=== PATIENT | male | born 1950 | race Caucasian/White ===

== ENCOUNTER 2017-08-15 13:48 | Outpatient (CLI) | payer MEDICARE, BC, OTHER ==
[~2017-08-15] VITALS: Ht 175.3 cm; Wt 105.7 kg
[~2017-08-15 13:48] MED LIST: ASPI81TA85 PO; INSULANT SC; METF10004 PO; SIMV40TA2 PO; TELM1TAB12 PO; VICT18IN SC; VITA-122 PO; VITA100072 PO
[2017-08-15] MEDS ORDERED: NS 1,000 ML IV SCH (14:00)
[2017-08-15] MEDS ORDERED: PROPOFOL 200 MG/20 ML VIAL As Ordered ONE ×2 (14:39→14:40)
[2017-08-15] MEDS ORDERED: LIDOCAINE 2% INJ 100 MG/5 ML SDV (FOR ANES.) As Ordered ONE ×2 (14:39→14:40)
--- NOTE | 2017-08-15 15:03 | ROOR ---
Patient Name: Margarito Pulliam Procedure Date: 08/15/2017 2:30 PM Date of : 1950 Age: 66 Room: [facility] Gender: Male Note Status: Finalized Procedure: Total Colonoscopy to Cecum + Cold Snare Polypectomy + Hemoclips Indications: High risk colon cancer surveillance: Personal history of colonic polyps, Last colonoscopy: 2013 Providers: Tucker Cao MD Referring MD: Stan Mojica MD Requesting Provider: Medicines: Monitored Anesthesia Care Complications: No immediate complications. Procedure: Pre-Anesthesia Assessment: - The heart rate, respiratory rate, oxygen saturations, blood pressure, adequacy of pulmonary ventilation, and response to care were monitored throughout the procedure. The Colonoscope was introduced through the anus and advanced to the cecum, identified by appendiceal orifice and ileocecal valve. The colonoscopy was performed without difficulty. The patient tolerated the procedure well. The quality of the bowel preparation was good. Findings: The perianal and digital rectal examinations were normal. Non-bleeding internal hemorrhoids were found during retroflexion. The hemorrhoids were small and Grade I (internal hemorrhoids that do not prolapse). Multiple small and large-mouthed diverticula were found in the recto-sigmoid colon, sigmoid colon and descending colon. A large polyp was found in the mid ascending colon. The polyp was sessile. The polyp was removed with a cold snare. Resection and retrieval were complete. To prevent bleeding after the polypectomy, two hemostatic clips were successfully placed (MR conditional). There was no bleeding at the end of the procedure. The exam was otherwise without abnormality on direct and retroflexion views. Impression: - Non-bleeding internal hemorrhoids. - Diverticulosis in the recto-sigmoid colon, in the sigmoid colon and in the descending colon. - One large polyp in the mid ascending colon, removed with a cold snare. Resected and retrieved. Clips (MR conditional) were placed. - The examination was otherwise normal on direct and retroflexion views. - The exam was otherwise normal to the cecum. Recommendation: - Patient has a contact number available for emergencies. The signs and symptoms of potential delayed complications were discussed with the patient. Return to normal activities tomorrow. Written discharge instructions were provided to the patient. - High fiber diet. - Discharge patient to home. - Continue present medications. - Await pathology results. - Telephone GI clinic for pathology results in 1 week. - Repeat colonoscopy for surveillance based on pathology results. - Return to referring physician. - The findings and recommendations were discussed with the patient's family. Tucker Cao MD Tucker Cao MD 08/15/2017 3:02:42 PM This report has been signed electronically. Number of Addenda: 0 Note Initiated On: 08/15/2017 2:30 PM Estimated Blood Loss: Estimated blood loss: none.
[2017-08-15 15:22] VITALS: BP 131/73
== END 2017-08-15 15:25 | disposition home or self-care (01) ==
LOC: M OPP 13:48
PROVIDERS: ATTEND Internal Medicine Gastroenterology
DX: Z12.11 Encounter for screening for malignant neoplasm of colon (principal); Z86.010 Personal history of colon polyps; D12.2 Benign neoplasm of ascending colon; K64.0 First degree hemorrhoids; K57.30 Diverticulosis of large intestine without perforation or abscess without bleeding; I10 Essential (primary) hypertension; E78.5 Hyperlipidemia, unspecified; E10.9 Type 1 diabetes mellitus without complications; E07.9 Disorder of thyroid, unspecified; J44.9 Chronic obstructive pulmonary disease, unspecified; R06.83 Snoring; Z87.891 Personal history of nicotine dependence; Z79.82 Long term (current) use of aspirin; Z79.899 Other long term (current) drug therapy; Z79.84 Long term (current) use of oral hypoglycemic drugs

== ENCOUNTER → 2019-05-26 | Outpatient (CLI) | payer MEDICARE, BC, OTHER ==
[~2019-05-26] MED LIST changes: -TELM1TAB12 PO; +TELM1TAB33 PO; +VITA100018 PO; -VITA100072 PO
--- NOTE | 2019-05-26 09:02 | REP ---
Clinical: Lung screening. History smoking. Comparison: 03/05/2014 Technique: Axial low-dose noncontrast images from the thoracic inlet to the upper abdomen using lung screening technique. Findings: The lung kirkpatrick are well-aerated. Pleuroparenchymal changes along the lateral and basilar aspect of the right middle lobe and right lower lobe including a somewhat triangular nodular consolidation and adjacent round nodule at the right base remain stable. No acute consolidation, significant nodule or mass lesion is appreciated. No pleural effusion or pneumothorax. Tracheobronchial tree is patent. Mediastinum demonstrates atherosclerotic changes of the coronary arteries without cardiomegaly. Impression: 1. Lung-RADS category II. Chronic stable appearing pleuroparenchymal changes primarily involving the periphery and basilar portions of the right middle lobe and right lower lobe appear stable compared to 03/05/2014. No significant nodule or suspicious abnormality. 2. Management recommendations include annual low-dose CT evaluation. Electronically Signed by Venu Avelar MD 05/26/2019 08:55 A
== END ==
LOC: M RAD 08:23
PROVIDERS: ATTEND Family Medicine
DX: Z12.2 Encounter for screening for malignant neoplasm of respiratory organs (principal); Z87.891 Personal history of nicotine dependence

== ENCOUNTER → 2020-04-22 | Outpatient (REF) | payer MEDICARE, OTHER ==
[~2020-04-22] MED LIST changes: -SIMV40TA2 PO; +SIMV40TA20 PO
[2020-04-22 14:06] LABS: CHOLESTEROL RISK RATIO 5.387 (<5)
== END ==
LOC: M PLALAB 10:30
PROVIDERS: ATTEND Physician Assistant Medical
DX: E78.2 Mixed hyperlipidemia (principal)
CPT/HCPCS: 36415; 80061; G0463

== ENCOUNTER → 2020-05-26 | Outpatient (CLI) | payer MEDICARE, BC, OTHER ==
--- NOTE | 2020-05-26 11:09 | REP ---
Clinical: Screening for abdominal aortic aneurysm. Technique: Real time cruz scale ultrasound examination using curved array transducer. Findings: Abdominal aorta demonstrates atheromatous plaquing without evidence for aneurysm. No periaortic fluid collections are identified. Evaluation is somewhat limited due to overlying bowel gas. No obvious aneurysm is identified. Proximal aorta 2.8 cm maximal diameter. Mid aorta (renal artery level) obscured by bowel gas. Mid aorta 2.1 x 2.3 cm. Distal aorta 2.1 x 2.0 cm. Right common iliac artery 0.9 cm maximal diameter. Left common iliac artery 1.4 cm maximal diameter. Impression: Atheromatous plaquing without evidence for abdominal aortic aneurysm. Electronically Signed by Venu Avelar MD 05/26/2020 11:01 A
== END ==
LOC: M RAD 08:49
PROVIDERS: ATTEND Physician Assistant Medical
DX: Z13.6 Encounter for screening for cardiovascular disorders (principal)

== ENCOUNTER → 2020-12-15 | Outpatient (CLI) | payer MEDICARE, BC, OTHER ==
[~2020-12-15] MED LIST changes: -ASPI81TA85 PO; +ASPI81TA86 PO
--- NOTE | 2020-12-15 15:58 | REP ---
INDICATION: LUNG CANCER SCREENING. COMPARISON: Comparison CT studies are May 26, 2019 and March 05, 2014.. TECHNIQUE: Low-dose screening noncontrast CT study. Axial 3 mm lung window only images are provided. FINDINGS: There is chronic pleuroparenchymal fibrosis with bandlike opacity in the right lower lobe and right middle lobe unchanged from both prior studies. Adjacent to the curvilinear area of fibrosis in the right lower lobe, there is a stable 5 mm noncalcified pulmonary nodule unchanged from the May 26, 2019 study. No pulmonary mass or other significant pulmonary nodule is appreciated. No pleural effusion is seen. There is some vascular calcification noted the mediastinal vascular structures. IMPRESSION: Stable lung RADS category 2 findings. Repeat screening exam suggested in 1 year. <Electronically signed by Zack Greene > 12/15/20 [id number]
== END ==
LOC: M RAD 13:45
PROVIDERS: ATTEND Family Medicine
DX: Z12.2 Encounter for screening for malignant neoplasm of respiratory organs (principal); Z87.891 Personal history of nicotine dependence; J84.10 Pulmonary fibrosis, unspecified; R91.1 Solitary pulmonary nodule

== ENCOUNTER → 2022-01-13 | Outpatient (CLI) | payer MEDICARE, BC, OTHER | LOC: M RAD 07:52 | PROVIDERS: ATTEND Family Medicine | DX: Z12.2 Encounter for screening for malignant neoplasm of respiratory organs (principal); Z87.891 Personal history of nicotine dependence ==

== ENCOUNTER 2022-05-11 21:45 | Inpatient (IN) | payer MEDICARE, BC, OTHER ==
[~2022-05-11] VITALS: Ht 175.3 cm; Wt 102.3 kg
[~2022-05-11 21:45] MED LIST changes: -ASPI-161 PO; -CEFD300C41 PO; -DOXY100T PO; -DULA3PEN SQ; -FISH1000 PO; -JARD1TAB3 PO; -ROSU20TA5 PO; -SYNT112T2 PO; -TELM1TAB37 PO; -VITA100093 PO
[2022-05-11] MEDS ORDERED: ACETAMINOPHEN 325 MG TAB PO ONE (22:25)
[2022-05-11] MEDS: NS 1,000 ML IV SCH (22:25)
[2022-05-11 23:04] LABS: BASO % 0.6 % (0.0-1.0); EOS % 0.2 % (0.0-3.0); HEMATOCRIT 45.4 % (42.0-52.0); HEMOGLOBIN 14.6 g/dl (13.5-17.5); LYMPH # 0.4 10^3/uL (1.5-5.0); LYMPH % 6.7 % (24.0-44.0); MEAN CORPUSCULAR HEMOGLOBIN 27.7 pg (27.0-33.0); MEAN CORPUSCULAR HGB CONC 32.2 g/dl (32.0-36.5); MONO # 0.4 10^3/uL (0.0-0.8); MONO % 5.6 % (2.0-8.0); NEUTROPHILS # 5.5 10^3/uL (1.5-8.5); NEUTROPHILS % 86.6 % (36.0-66.0); PLATELET COUNT, AUTOMATED 134 10^3/uL (150-450); RED BLOOD COUNT 5.28 10^6/uL (4.30-6.10); WHITE BLOOD COUNT 6.3 10^3/uL (4.0-10.0)
[2022-05-11 23:08] LABS: INR 1.06; PARTIAL THROMBOPLASTIN TIME 30.1 SECONDS (25.9-37.0); PROTHROMBIN TIME 14.2 SECONDS (12.7-14.5)
[2022-05-11 23:22] LABS: ALBUMIN 3.2 GM/DL (3.2-5.2); ALT/SGPT 57 U/L (12-78); AMYLASE 43 U/L (25-115); BILIRUBIN,DIRECT 0.2 MG/DL (0.0-0.2); BILIRUBIN,TOTAL 0.6 MG/DL (0.2-1.0); BLOOD UREA NITROGEN 21 MG/DL (7-18); CALCIUM LEVEL 8.2 MG/DL (8.8-10.2); CARBON DIOXIDE LEVEL 24 MEQ/L (21-32); CHLORIDE LEVEL 102 MEQ/L (98-107); CREATININE FOR GFR 0.89 MG/DL (0.70-1.30); GLOMERULAR FILTRATION RATE > 60.0 (>42); GLUCOSE, FASTING 150 MG/DL (70-100); POTASSIUM SERUM 3.4 MEQ/L (3.5-5.1); SODIUM LEVEL 134 MEQ/L (136-145); TOTAL PROTEIN 6.4 GM/DL (6.4-8.2)
[2022-05-11] MEDS ORDERED: cefTRIAXone SOD 2 GM in D5W MINI-BAG PLUS 50 ML IV ONE (23:25)
[2022-05-11 23:34] LABS: ERYTHROCYTE SEDIMENTATION RATE 7 mm/hr (0-20); RSV AMPLIFICATION NEGATIVE (NEGATIVE)
[2022-05-12] MEDS ORDERED: NS 1,000 ML IV ONE ×2 (00:25→02:00)
[2022-05-12] MEDS ORDERED: POTASSIUM CHLORIDE 10MEQ SR TABLET PO ONE (01:00)
[2022-05-12] MEDS ORDERED: GLUCOSE 4GM CHEW TABLET PO PRN (01:20)
[2022-05-12] MEDS ORDERED: DEXTROSE 50% 50 ML SYRINGE IV PRN (01:20)
[2022-05-12] MEDS ORDERED: GLUCAGON INJ 1MG VIAL SC PRN (01:20)
[2022-05-12] MEDS ORDERED: TELM1TAB37 PO (02:41)
[2022-05-12] MEDS ORDERED: VITA100093 PO (02:41)
[2022-05-12] MEDS ORDERED: DULA3PEN SQ (02:41)
[2022-05-12] MEDS ORDERED: FISH1000 PO (02:42)
[2022-05-12] MEDS ORDERED: JARD1TAB3 PO (02:42)
[2022-05-12] MEDS ORDERED: ASPI-161 PO (02:42)
[2022-05-12] MEDS ORDERED: SYNT112T2 PO (02:42)
[2022-05-12] MEDS ORDERED: HOME MED LIST COMPLETE! XX SCH (02:45)
[2022-05-12] MEDS: LEVEMIR (INSULIN DETEMIR) 1 UNITS/0.01ML SC SCH ×2 (03:33→21:12)
[2022-05-12 06:40] LABS: HEMATOCRIT 45.5 % (42.0-52.0); HEMOGLOBIN 14.6 g/dl (13.5-17.5); MEAN CORPUSCULAR HEMOGLOBIN 27.4 pg (27.0-33.0); MEAN CORPUSCULAR HGB CONC 32.1 g/dl (32.0-36.5); MEAN CORPUSCULAR VOLUME 85.4 fl (80.0-96.0); PLATELET COUNT, AUTOMATED 100 10^3/uL (150-450); RED BLOOD COUNT 5.33 10^6/uL (4.30-6.10); WHITE BLOOD COUNT 5.7 10^3/uL (4.0-10.0)
[2022-05-12 06:59] LABS: HEMOGLOBIN A1c 6.6 %
[2022-05-12 07:02] LABS: BLOOD UREA NITROGEN 20 MG/DL (7-18); CALCIUM LEVEL 8.1 MG/DL (8.8-10.2); CARBON DIOXIDE LEVEL 24 MEQ/L (21-32); CHLORIDE LEVEL 103 MEQ/L (98-107); CREATININE FOR GFR 0.91 MG/DL (0.70-1.30); GLOMERULAR FILTRATION RATE > 60.0 (>42); GLUCOSE, FASTING 127 MG/DL (70-100); MAGNESIUM LEVEL 1.8 MG/DL (1.8-2.4); POTASSIUM SERUM 3.9 MEQ/L (3.5-5.1); SODIUM LEVEL 136 MEQ/L (136-145)
[2022-05-12 07:03] LABS: BASOPHILS 2 % (0-1); LYMPHOCYTES 4 % (16-44); MONOCYTES 3 % (0-5); NEUTROPHILS 88 % (28-66); PLATELET ESTIMATE NORMAL (NORMAL)
[2022-05-12] MEDS: LEVOTHYROXINE 112MCG TABLET (0.112MG) PO SCH (07:10)
[2022-05-12] MEDS: INSULIN LISPRO (NovoLOG) PER UNIT SC SCH ×4 (08:10→21:12)
[2022-05-12] MEDS: DOXYCYCLINE HYCLATE 100MG TABLET PO SCH ×3 (09:00→21:12)
[2022-05-12] MEDS: NS 1,000 ML IV SCH ×2 (09:00→16:29)
[2022-05-12] MEDS: CYANOCOBALAMIN 500 MCG TAB PO SCH (09:47)
[2022-05-12] MEDS: ASPIRIN 81MG ENTERIC TABLET PO SCH (09:47)
[2022-05-12] MEDS: LACTOBACILLUS ACIDOPHILUS CAP (BACID) PO SCH (09:47)
[2022-05-12] MEDS: VITAMIN D 1,000 INTERNATIONAL UNITS TABLET PO SCH (09:47)
[2022-05-12] MEDS: ENOXAPARIN 40MG/0.4ML SYRINGE (J1650 PER 10MG) SC SCH ×2 (09:49→11:30)
[2022-05-12] MEDS: GASTROGRAFIN SOLUTION 30ML PO SCH ×2 (13:45→14:15)
[2022-05-12] MEDS: TELMISARTAN 20 MG TAB PO SCH (13:51)
[2022-05-12] MEDS ORDERED: ISOVUE-370 76% 100ML VIAL As Ordered ONE (14:59)
[2022-05-12] MEDS: ACETAMINOPHEN TAB 650MG DOSE (2X325MG) PO PRN (15:00)
[2022-05-12 15:53] VITALS: BP 120/65
[2022-05-12] MEDS ORDERED: IBUPROFEN 600MG TAB PO ONE (16:10)
[2022-05-12] MEDS ORDERED: SIMVASTATIN 40 MG TAB PO SCH (21:00)
[2022-05-12] MEDS: cefTRIAXone SOD 1 GM in D5W MINI-BAG PLUS 50 ML IV SCH (21:11)
[2022-05-12 21:49] VITALS: BP 133/69
[2022-05-12] MEDS: PANTOPRAZOLE 40MG VIAL IV SCH (22:51)
[2022-05-13] MEDS: NS 1,000 ML IV SCH ×2 (01:25→20:39)
[2022-05-13] MEDS: LEVOTHYROXINE 112MCG TABLET (0.112MG) PO SCH (05:32)
[2022-05-13 05:41] VITALS: BP 131/68
[2022-05-13 05:52] VITALS: BP 113/61
[2022-05-13 07:22] LABS: HEMATOCRIT 42.9 % (42.0-52.0); HEMOGLOBIN 13.8 g/dl (13.5-17.5); MEAN CORPUSCULAR HEMOGLOBIN 27.9 pg (27.0-33.0); MEAN CORPUSCULAR HGB CONC 32.2 g/dl (32.0-36.5); MEAN CORPUSCULAR VOLUME 86.7 fl (80.0-96.0); RED BLOOD COUNT 4.95 10^6/uL (4.30-6.10); WHITE BLOOD COUNT 2.8 10^3/uL (4.0-10.0)
[2022-05-13] MEDS: INSULIN LISPRO (NovoLOG) PER UNIT SC SCH ×4 (07:30→20:41)
[2022-05-13 07:45] LABS: ALBUMIN 2.6 GM/DL (3.2-5.2); ALT/SGPT 102 U/L (12-78); BILIRUBIN,TOTAL 0.5 MG/DL (0.2-1.0); BLOOD UREA NITROGEN 16 MG/DL (7-18); CALCIUM LEVEL 7.5 MG/DL (8.8-10.2); CARBON DIOXIDE LEVEL 26 MEQ/L (21-32); CHLORIDE LEVEL 109 MEQ/L (98-107); CREATININE FOR GFR 0.63 MG/DL (0.70-1.30); GLOMERULAR FILTRATION RATE > 60.0 (>42); GLUCOSE, FASTING 66 MG/DL (70-100); PHOSPHORUS LEVEL 2.4 MG/DL (2.5-4.9); POTASSIUM SERUM 3.5 MEQ/L (3.5-5.1); SODIUM LEVEL 140 MEQ/L (136-145); TOTAL PROTEIN 5.6 GM/DL (6.4-8.2)
[2022-05-13] MEDS ORDERED: D5W/0.45% SODIUM CHLORIDE 1,000 ML IV SCH (08:05)
[2022-05-13] MEDS: ASPIRIN 81MG ENTERIC TABLET PO SCH (08:42)
[2022-05-13] MEDS: LACTOBACILLUS ACIDOPHILUS CAP (BACID) PO SCH (08:42)
[2022-05-13] MEDS: VITAMIN D 1,000 INTERNATIONAL UNITS TABLET PO SCH (08:42)
[2022-05-13] MEDS: DOXYCYCLINE HYCLATE 100MG TABLET PO SCH ×2 (08:43→20:40)
[2022-05-13] MEDS: TELMISARTAN 20 MG TAB PO SCH (08:43)
[2022-05-13 08:44] LABS: PLATELET COUNT, AUTOMATED 60 10^3/uL (150-450)
[2022-05-13] MEDS: ENOXAPARIN 40MG/0.4ML SYRINGE (J1650 PER 10MG) SC SCH (08:44)
[2022-05-13] MEDS: CYANOCOBALAMIN 500 MCG TAB PO SCH (08:44)
[2022-05-13] MEDS: ACETAMINOPHEN TAB 650MG DOSE (2X325MG) PO PRN (08:44)
[2022-05-13 08:49] LABS: ATYPICAL LYMPH 4 % (0-5); BASOPHILS 3 % (0-1); LYMPHOCYTES 10 % (16-44); METAMYELOCYTES 1 % (0-0); MONOCYTES 9 % (0-5); MYELOCYTES 1 % (0-0); NEUTROPHILS 52 % (28-66)
[2022-05-13 08:50] LABS: MICROCYTOSIS 1+
[2022-05-13 08:52] LABS: PLATELET ESTIMATE DECREASED (NORMAL)
[2022-05-13 08:53] LABS: GIANT PLATELETS 1+
[2022-05-13] MEDS: D5W/0.9% SODIUM CHLORIDE 1,000 ML IV SCH ×2 (10:40→17:33)
[2022-05-13 14:00] VITALS: BP_SYST 121; BP_SYST 131; BP_DIAS 67
[2022-05-13] MEDS ORDERED: LACTULOSE 20 GM/30 ML SYRUP UD PO ONE (20:00)
[2022-05-13] MEDS: cefTRIAXone SOD 1 GM in D5W MINI-BAG PLUS 50 ML IV SCH (20:40)
[2022-05-13] MEDS: PANTOPRAZOLE 40MG VIAL IV SCH (20:40)
[2022-05-13] MEDS: LEVEMIR (INSULIN DETEMIR) 1 UNITS/0.01ML SC SCH (20:41)
[2022-05-13 22:00] VITALS: BP 143/69
[2022-05-14] MEDS: NS 1,000 ML IV SCH ×4 (05:32→20:13)
[2022-05-14] MEDS: LEVOTHYROXINE 112MCG TABLET (0.112MG) PO SCH (05:33)
[2022-05-14 06:00] VITALS: BP 111/56
[2022-05-14 06:39] LABS: HEMATOCRIT 42.7 % (42.0-52.0); HEMOGLOBIN 13.4 g/dl (13.5-17.5); MEAN CORPUSCULAR HEMOGLOBIN 27.6 pg (27.0-33.0); MEAN CORPUSCULAR HGB CONC 31.4 g/dl (32.0-36.5); RED BLOOD COUNT 4.85 10^6/uL (4.30-6.10); WHITE BLOOD COUNT 6.5 10^3/uL (4.0-10.0)
[2022-05-14 06:41] LABS: PLATELET COUNT, AUTOMATED 66 10^3/uL (150-450)
[2022-05-14 07:08] LABS: ALBUMIN 2.5 GM/DL (3.2-5.2); ALT/SGPT 92 U/L (12-78); BILIRUBIN,TOTAL 0.4 MG/DL (0.2-1.0); BLOOD UREA NITROGEN 14 MG/DL (7-18); CALCIUM LEVEL 8.2 MG/DL (8.8-10.2); CARBON DIOXIDE LEVEL 26 MEQ/L (21-32); CHLORIDE LEVEL 110 MEQ/L (98-107); CREATININE FOR GFR 0.67 MG/DL (0.70-1.30); GLOMERULAR FILTRATION RATE > 60.0 (>42); GLUCOSE, FASTING 53 MG/DL (70-100); MAGNESIUM LEVEL 2.1 MG/DL (1.8-2.4); PHOSPHORUS LEVEL 2.3 MG/DL (2.5-4.9); POTASSIUM SERUM 3.5 MEQ/L (3.5-5.1); SODIUM LEVEL 143 MEQ/L (136-145); TOTAL PROTEIN 5.8 GM/DL (6.4-8.2)
[2022-05-14] MEDS ORDERED: LACTULOSE 20 GM/30 ML SYRUP UD PO ONE (07:20)
[2022-05-14 07:25] LABS: ATYPICAL LYMPH 7 % (0-5); LYMPHOCYTES 21 % (16-44); METAMYELOCYTES 1 % (0-0); MONOCYTES 15 % (0-5); NEUTROPHILS 39 % (28-66)
[2022-05-14 07:27] LABS: CRENATED RBC 2+; GIANT PLATELETS 1+; PLATELET ESTIMATE DECREASED (NORMAL)
[2022-05-14] MEDS: INSULIN LISPRO (NovoLOG) PER UNIT SC SCH ×4 (07:30→20:30)
[2022-05-14] MEDS: LACTOBACILLUS ACIDOPHILUS CAP (BACID) PO SCH (09:02)
[2022-05-14] MEDS: ASPIRIN 81MG ENTERIC TABLET PO SCH (09:02)
[2022-05-14] MEDS: CYANOCOBALAMIN 500 MCG TAB PO SCH (09:02)
[2022-05-14] MEDS: DOXYCYCLINE HYCLATE 100MG TABLET PO SCH ×2 (09:02→20:30)
[2022-05-14] MEDS: VITAMIN D 1,000 INTERNATIONAL UNITS TABLET PO SCH (09:04)
[2022-05-14] MEDS: TELMISARTAN 20 MG TAB PO SCH (09:05)
[2022-05-14] MEDS ORDERED: POTASSIUM CHLORIDE 10MEQ SR TABLET PO ONE (12:00)
[2022-05-14] MEDS: K-PHOS ORIGINAL (POT.ACID PHOSPHATE) 500MG TAB PO SCH ×2 (12:38→20:30)
[2022-05-14 14:00] VITALS: BP 136/71
[2022-05-14] MEDS: cefTRIAXone SOD 1 GM in D5W MINI-BAG PLUS 50 ML IV SCH (20:29)
[2022-05-14] MEDS: PANTOPRAZOLE 40MG VIAL IV SCH (20:29)
[2022-05-14] MEDS ORDERED: LEVEMIR (INSULIN DETEMIR) 1 UNITS/0.01ML SC SCH (21:00)
[2022-05-14 22:00] VITALS: BP 110/41
[2022-05-15 06:00] VITALS: BP 126/57
[2022-05-15 06:27] LABS: HEMATOCRIT 39.9 % (42.0-52.0); HEMOGLOBIN 12.6 g/dl (13.5-17.5); MEAN CORPUSCULAR HEMOGLOBIN 27.6 pg (27.0-33.0); MEAN CORPUSCULAR HGB CONC 31.6 g/dl (32.0-36.5); MEAN CORPUSCULAR VOLUME 87.3 fl (80.0-96.0); RED BLOOD COUNT 4.57 10^6/uL (4.30-6.10); WHITE BLOOD COUNT 8.3 10^3/uL (4.0-10.0)
[2022-05-15] MEDS: LEVOTHYROXINE 112MCG TABLET (0.112MG) PO SCH (06:27)
[2022-05-15] MEDS: NS 1,000 ML IV SCH (06:27)
[2022-05-15 06:34] LABS: PLATELET COUNT, AUTOMATED 87 10^3/uL (150-450)
[2022-05-15 06:55] LABS: ALBUMIN 2.3 GM/DL (3.2-5.2); ALT/SGPT 76 U/L (12-78); BILIRUBIN,DIRECT 0.1 MG/DL (0.0-0.2); BILIRUBIN,TOTAL 0.3 MG/DL (0.2-1.0); BLOOD UREA NITROGEN 12 MG/DL (7-18); CALCIUM LEVEL 8.4 MG/DL (8.8-10.2); CARBON DIOXIDE LEVEL 27 MEQ/L (21-32); CHLORIDE LEVEL 110 MEQ/L (98-107); CREATININE FOR GFR 0.55 MG/DL (0.70-1.30); GLOMERULAR FILTRATION RATE > 60.0 (>42); GLUCOSE, FASTING 57 MG/DL (70-100); MAGNESIUM LEVEL 2.1 MG/DL (1.8-2.4); PHOSPHORUS LEVEL 3.6 MG/DL (2.5-4.9); POTASSIUM SERUM 3.8 MEQ/L (3.5-5.1); SODIUM LEVEL 145 MEQ/L (136-145); TOTAL PROTEIN 5.3 GM/DL (6.4-8.2)
[2022-05-15 07:14] LABS: ATYPICAL LYMPH 11 % (0-5); EOSINOPHILS 2 % (0-3); LYMPHOCYTES 28 % (16-44); MONOCYTES 7 % (0-5); NEUTROPHILS 48 % (28-66)
[2022-05-15 07:15] LABS: PLATELET ESTIMATE DECREASED (NORMAL)
[2022-05-15] MEDS: INSULIN LISPRO (NovoLOG) PER UNIT SC SCH (07:30)
[2022-05-15] MEDS: TELMISARTAN 20 MG TAB PO SCH (09:00)
[2022-05-15] MEDS: VITAMIN D 1,000 INTERNATIONAL UNITS TABLET PO SCH (09:01)
[2022-05-15] MEDS: DOXYCYCLINE HYCLATE 100MG TABLET PO SCH (09:01)
[2022-05-15] MEDS: CYANOCOBALAMIN 500 MCG TAB PO SCH (09:01)
[2022-05-15] MEDS: LACTOBACILLUS ACIDOPHILUS CAP (BACID) PO SCH (09:01)
[2022-05-15] MEDS: ASPIRIN 81MG ENTERIC TABLET PO SCH (09:01)
[2022-05-15 09:07] LABS: HEPATITIS B SURFACE ANTIGEN NEGATIVE (NEGATIVE)
[2022-05-15 09:34] LABS: HEPATITIS B CORE ANTIBODY IGM NEGATIVE (NEGATIVE); HEPATITIS C VIRUS ABY INDEX 0.1 INDEX (<0.8)
[2022-05-15] MEDS ORDERED: CEFD300C41 PO (10:00)
[2022-05-15] MEDS ORDERED: DOXY100T PO (10:00)
[2022-05-15] MEDS ORDERED: ROSU20TA5 PO (10:03)
== END 2022-05-15 10:56 | disposition home or self-care (01) | DRG 872 ==
LOC: M ED 21:45 → M ED INP 05-12 00:25 → ENRESERV 05-12 13:29 → M MSPAV 05-12 15:32
PROVIDERS: ADMIT Internal Medicine; ATTEND Internal Medicine
DX: A41.9 Sepsis, unspecified organism (principal); N39.0 Urinary tract infection, site not specified; M62.82 Rhabdomyolysis; J98.11 Atelectasis; K56.7 Ileus, unspecified; A79.82 Anaplasmosis [A. phagocytophilum]; I10 Essential (primary) hypertension; E11.9 Type 2 diabetes mellitus without complications; R53.81 Other malaise; R74.01 Elevation of levels of liver transaminase levels; E03.9 Hypothyroidism, unspecified; E78.5 Hyperlipidemia, unspecified; D69.6 Thrombocytopenia, unspecified; R16.2 Hepatomegaly with splenomegaly, not elsewhere classified; K44.9 Diaphragmatic hernia without obstruction or gangrene; K20.90 Esophagitis, unspecified without bleeding; Z79.82 Long term (current) use of aspirin; Z79.899 Other long term (current) drug therapy; Z79.4 Long term (current) use of insulin; Z87.891 Personal history of nicotine dependence

== ENCOUNTER → 2022-05-11 | Outpatient (CLI) | payer MEDICARE, BC, OTHER ==
[~2022-05-11] MED LIST changes: +ASPI-161 PO; +CEFD300C41 PO; +DOXY100T PO; +DULA3PEN SQ; +FISH1000 PO; +JARD1TAB3 PO; +ROSU20TA5 PO; +SYNT112T2 PO; +TELM1TAB37 PO; +VITA100093 PO
[2022-05-11 17:08] LABS: BASO # 0.1 10^3/uL (0.0-0.2); BASO % 0.8 % (0.0-1.0); HEMATOCRIT 49.1 % (42.0-52.0); HEMOGLOBIN 15.6 g/dl (13.5-17.5); LYMPH # 0.7 10^3/uL (1.5-5.0); LYMPH % 8.9 % (24.0-44.0); MEAN CORPUSCULAR HEMOGLOBIN 28.2 pg (27.0-33.0); MEAN CORPUSCULAR HGB CONC 31.8 g/dl (32.0-36.5); MEAN CORPUSCULAR VOLUME 88.6 fl (80.0-96.0); MONO # 0.5 10^3/uL (0.0-0.8); MONO % 7.1 % (2.0-8.0); NEUTROPHILS # 6.3 10^3/uL (1.5-8.5); NEUTROPHILS % 82.7 % (36.0-66.0); PLATELET COUNT, AUTOMATED 164 10^3/uL (150-450); RED BLOOD COUNT 5.54 10^6/uL (4.30-6.10); WHITE BLOOD COUNT 7.7 10^3/uL (4.0-10.0)
[2022-05-11 17:37] LABS: ALBUMIN 3.5 GM/DL (3.2-5.2); BLOOD UREA NITROGEN 28 MG/DL (7-18); CALCIUM LEVEL 8.7 MG/DL (8.8-10.2); CARBON DIOXIDE LEVEL 28 MEQ/L (21-32); CHLORIDE LEVEL 101 MEQ/L (98-107); CREATININE FOR GFR 1.07 MG/DL (0.70-1.30); GLOMERULAR FILTRATION RATE > 60.0 (>42); GLUCOSE, FASTING 90 MG/DL (70-100); MAGNESIUM LEVEL 2.2 MG/DL (1.8-2.4); NT-PRO BNP 117 PG/ML (<125); PHOSPHORUS LEVEL 3.6 MG/DL (2.5-4.9); POTASSIUM SERUM 3.9 MEQ/L (3.5-5.1); SODIUM LEVEL 137 MEQ/L (136-145)
[2022-05-11 20:50] LABS: ERYTHROCYTE SEDIMENTATION RATE 4 mm/hr (0-20)
== END ==
LOC: M PLAIMG 13:53
PROVIDERS: ATTEND Physician Assistant
DX: R52 Pain, unspecified (principal); R53.1 Weakness; I95.1 Orthostatic hypotension

== ENCOUNTER → 2023-04-09 | Outpatient (CLI) | payer MEDICARE, BC, OTHER ==
[~2023-04-09] MED LIST changes: +ASPI-161 PO; +CEFD300C41 PO; +DOXY100T PO; +DULA3PEN SQ; +FISH1000 PO; +JARD1TAB3 PO; +ROSU20TA5 PO; +SYNT112T2 PO; +TELM1TAB37 PO; +VITA100093 PO
[2023-04-09 17:56] LABS: HEMOGLOBIN A1c 6.1 % (4.0-6.0)
== END ==
LOC: M PLALAB 15:19
PROVIDERS: ATTEND Nurse Practitioner Family
DX: E11.9 Type 2 diabetes mellitus without complications (principal)

== ENCOUNTER 2024-02-27 09:52 | Day surgery (SDC) | payer MEDICARE, BC ==
[~2024-02-27] VITALS: Ht 175.3 cm; Wt 97.0 kg
[~2024-02-27 09:52] MED LIST changes: -ASPI-161 PO; +ASPI-615 PO; +CEFD1CAP9 PO; -CEFD300C41 PO; +LANTINJ4 SC; +MIDAZOLAM INJ 2MG/2ML VIAL As Ordered ONE; +OMEG10002 PO; +PHENYLEPHRINE 10% OPHTH SOL 5ML OD PRN; -ROSU20TA5 PO; +ROSU20TA61 PO; +TROPICAMIDE 1% OPHTH SOLN 15ML OD SCH
[2024-02-27] MEDS: ATROPINE SULFATE 1% OPHTH SOLN 2ML BTL OD SCH (11:33)
[2024-02-27] MEDS: PHENYLEPHRINE 2.5% OPHTH SOL 2ML OD SCH (11:33)
[2024-02-27] MEDS: OFLOXACIN 0.3 % (OCUFLOX) OPTH SOL 5ML OD ONE (11:33)
[2024-02-27] MEDS: LIDOCAINE 3.5 % 1ML OPHTH TOPICAL GEL OU ONE (11:33)
[2024-02-27] MEDS: BSS IRRIG/VANCO(10MG)/TOBRA(5MG)/EPINEPH(1:1000-0.5CC)500ML BAG-ORONLY As Ordered ONE (12:51)
[2024-02-27] MEDS: CEFUROXIME 1MG/0.1ML INTRACAMERAL INJ As Ordered ONE (12:51)
[2024-02-27] MEDS: LIDOCAINE 1% SDV 5ML VIAL As Ordered ONE (12:51)
[2024-02-27 13:05] VITALS: BP 131/71; TEMP 98; O2SAT 98
== END 2024-02-27 13:16 | disposition home or self-care (01) ==
LOC: M SDC 09:52
PROVIDERS: ATTEND Ophthalmology
DX: H25.11 Age-related nuclear cataract, right eye (principal); H57.03 Miosis; I10 Essential (primary) hypertension; E11.9 Type 2 diabetes mellitus without complications; E78.5 Hyperlipidemia, unspecified; E03.9 Hypothyroidism, unspecified; Z79.82 Long term (current) use of aspirin; Z79.4 Long term (current) use of insulin; Z85.51 Personal history of malignant neoplasm of bladder; Z87.891 Personal history of nicotine dependence; Z79.899 Other long term (current) drug therapy
CPT/HCPCS: 66982; J0697; J2250; V2632

== ENCOUNTER 2024-03-12 09:19 | Day surgery (SDC) | payer MEDICARE, BC ==
[~2024-03-12] VITALS: Ht 175.3 cm; Wt 98.0 kg
[~2024-03-12 09:19] MED LIST changes: -MIDAZOLAM INJ 2MG/2ML VIAL As Ordered ONE; -PHENYLEPHRINE 10% OPHTH SOL 5ML OD PRN; +PHENYLEPHRINE 10% OPHTH SOL 5ML OS PRN; -TROPICAMIDE 1% OPHTH SOLN 15ML OD SCH
[2024-03-12] MEDS: LIDOCAINE 3.5 % 1ML OPHTH TOPICAL GEL OU ONE (10:10)
[2024-03-12] MEDS: OFLOXACIN 0.3 % (OCUFLOX) OPTH SOL 5ML OS ONE (10:10)
[2024-03-12] MEDS ORDERED: MIDAZOLAM INJ 2MG/2ML VIAL As Ordered ONE (10:32)
[2024-03-12] MEDS ORDERED: fentaNYL 100 MCG/2 ML INJECTION As Ordered ONE (10:32)
[2024-03-12] MEDS: ATROPINE SULFATE 1% OPHTH SOLN 2ML BTL OS SCH (10:37)
[2024-03-12] MEDS: TROPICAMIDE 1% OPHTH SOLN 15ML OS SCH (10:37)
[2024-03-12] MEDS: PHENYLEPHRINE 2.5% OPHTH SOL 2ML OS SCH (10:37)
[2024-03-12] MEDS: CEFUROXIME 1MG/0.1ML INTRACAMERAL INJ As Ordered ONE (11:25)
[2024-03-12] MEDS: BSS IRRIG/VANCO(10MG)/TOBRA(5MG)/EPINEPH(1:1000-0.5CC)500ML BAG-ORONLY As Ordered ONE (11:25)
[2024-03-12] MEDS: LIDOCAINE 1% SDV 5ML VIAL As Ordered ONE (11:25)
[2024-03-12 11:34] VITALS: BP 125/66; TEMP 97; O2SAT 96
== END 2024-03-12 11:52 | disposition home or self-care (01) ==
LOC: M SDC 09:19
PROVIDERS: ATTEND Ophthalmology
DX: E11.36 Type 2 diabetes mellitus with diabetic cataract (principal); H25.12 Age-related nuclear cataract, left eye; I10 Essential (primary) hypertension; J44.9 Chronic obstructive pulmonary disease, unspecified; E78.00 Pure hypercholesterolemia, unspecified; Z79.899 Other long term (current) drug therapy; Z79.82 Long term (current) use of aspirin; Z79.890 Hormone replacement therapy; Z79.85 Long-term (current) use of injectable non-insulin antidiabetic drugs; Z87.891 Personal history of nicotine dependence; Z85.51 Personal history of malignant neoplasm of bladder
CPT/HCPCS: 66984; J0697; J2250; J3010; V2632

== ENCOUNTER → 2024-06-16 | Outpatient (REF) | payer MEDICARE, BC ==
[~2024-06-16] MED LIST changes: -PHENYLEPHRINE 10% OPHTH SOL 5ML OS PRN
== END ==
LOC: M SFHCPLAZ 12:28
PROVIDERS: ATTEND Family Medicine
DX: E53.8 Deficiency of other specified B group vitamins (principal); E11.9 Type 2 diabetes mellitus without complications; I50.32 Chronic diastolic (congestive) heart failure; D50.9 Iron deficiency anemia, unspecified; E78.2 Mixed hyperlipidemia

== ENCOUNTER → 2025-06-22 | Outpatient (CLI) | payer MEDICARE, BC ==
[~2025-06-22] MED LIST changes: -ROSU20TA61 PO; +ROSU20TA86 PO
== END ==
LOC: M CARPUL 08:09
PROVIDERS: ATTEND Family Medicine
DX: I77.810 Thoracic aortic ectasia (principal); Z95.0 Presence of cardiac pacemaker

== ENCOUNTER → 2025-09-23 | Outpatient (CLI) | payer MEDICARE, BC | LOC: M PLAIMG 12:12 | PROVIDERS: ATTEND Physician Assistant Medical | DX: M25.561 Pain in right knee (principal) ==